=== PATIENT | male | born 1955 | race African-American/Black ===

== ENCOUNTER 2017-07-03 10:50 | Inpatient (IN) | payer OTHER ==
[~2017-07-03] VITALS: Ht 170.2 cm; Wt 80.3 kg
[~2017-07-03 10:50] MED LIST: ASPI-1093 PO; GLIP10TA3 PO; LISI5TAB18 PO; ORE25 PO
[2017-07-03 10:54] VITALS: BP 130/78
--- NOTE | 2017-07-03 11:05 | NUR ---
PT PRESENTS TO ER FOR EVALUATION OF RIGHT LEG PAIN X2 DAYS. HX DM, HTN, S/P SIVAKUMAR FOOT AMPUTATIONS IN 2001 AND 2009. DENIES N/V/D; SKIN IS PINK/WARM/DRY; AAOX4 WITH EVEN AND STEADY GAIT; LUNGS CLEAR BL; HR EVEN AND REGULAR; PT DENIES ANY FEVER, CP, SOB, OR COUGH AT THIS TIME; PATIENT STATES PAIN OF 8/10 AT THIS TIME; VSS; PATIENT POSITIONED FOR COMFORT; HOB ELEVATED; BEDRAILS UP X2; BED DOWN. ER MD MADE AWARE OF PT STATUS.
[2017-07-03] MEDS ORDERED: VANCOMYCIN PER PHARMACY MC PRN ×2 (11:20→13:50)
[2017-07-03] MEDS ORDERED: VANCOMYCIN 1GM/DEXT 5% PREMIX 200 ML IV ONE (11:20)
[2017-07-03] MEDS ORDERED: cefTRIAXone 2,000 MG in DEXTROSE 5% 100 ML IV ONE (11:20)
[2017-07-03] MEDS ORDERED: cefTRIAXone 2,000 MG VIAL ONE (11:38)
[2017-07-03 12:06] LABS: MEAN CORPUSCULAR HEMOGLOBIN 29 pg (27-31); MEAN CORPUSCULAR HGB CONC 32 g/dL (33-37); MEAN CORPUSCULAR VOLUME 88 fL (80-94); PLATELET COUNT (AUTO) 182 K/uL (140-450); RED CELL DISTRIBUTION WIDTH 11.9 % (11.6-13.7); WHITE BLOOD COUNT (AUTO) 14.9 K/uL (4.8-10.8)
[2017-07-03 12:16] LABS: LYMPHOCYTES % (MANUAL) 18 % (20-46); MONOCYTES % (MANUAL) 10 % (5-12)
[2017-07-03 12:17] LABS: PROTHROMBIN TIME 11.6 secs (10.8-13.4)
[2017-07-03 12:19] LABS: ALBUMIN 2.6 g/dL (3.4-5.0); ANION GAP 11.3 (8-16); CARBON DIOXIDE 31.3 mmol/L (21-32); CREATININE 1.8 mg/dL (0.7-1.3); POTASSIUM 3.6 mmol/L (3.5-5.1); TOTAL BILIRUBIN 1.6 mg/dL (0.0-1.0)
--- NOTE | 2017-07-03 14:01 | NUR ---
LATE ENTRY 1401 END TIME FOR NS 0.9%
--- NOTE | 2017-07-03 14:35 | NUR ---
Patient will be admitted to care of DR AVALOS. Admited to M/S. Will go to room 118. Belongings list completed. Report to WILL PATINO.
[2017-07-03 14:45] VITALS: BP 161/79
--- NOTE | 2017-07-03 14:45 | NUR ---
PATIENT ARRIVED ON MST UNIT VIA GURNEY/BED FROM ER. PATIENT ABLE TO TRANSFER SELF FROM BED TO WHEELCHAIR AND THEN TO BACK TO BED AGAIN. ABLE TO WHEEL SELF IN OWN WHEELCHAIR FROM HOME. IN STABLE CONDITION. NO DISTRESS NOTED. DENIES ANY PAIN AT THIS TIME. RESPIRATIONS EVEN, UNLABORED, ON ROOM AIR. AAOX4, CALM, COOPERATIVE, SKIN COLOR APPROPRIATE TO ETHNICITY, WARM TO TOUCH. HAS B/L FOOT AMPUTATION. RIGHT LE STUB DIABETIC ULCER PRESENT. DRESSING IS DRY AND INTACT. SKIN DRYNESS NOTED ON B/L LE. NO OTHER WOUNDS/LESIONS NOTED THROUGHOUT BODY. IV SITE ON LEFT FOREARM IS INTACT, PATENT, ON SALINE LOCK. LUNGS CTA ON ALL LOBES. ABDOMEN SOFT, NON-DISTENDED, NON-TENDER. REVIEWED PLAN OF CARE WITH PATIENT. PATIENT VERBALIZED UNDERSTANDING. SAFETY MEASURES IN PLACE, CALL LIGHT WITHIN REACH, FALL PREVENTIONS IN PLACE. WILL CONTINUE TO MONITOR.
--- NOTE | 2017-07-03 15:30 | NUR ---
PATIENT LYING IN BED WATCHING TV. NO DISTRESS NOTED. DENIES ANY PAIN. RESPIRATIONS EVEN, UNLABORED, ON ROOM AIR. CONDITION UNCHANGED. SAFETY MEASURES IN PLACE, CALL LIGHT WITHIN REACH, FALL PREVENTIONS IN PLACE. WILL CONTINUE TO MONITOR.
[2017-07-03 16:00] VITALS: BP 125/70
--- NOTE | 2017-07-03 17:57 | NUR ---
PAGED DR. AVALOS FOR ADMIT ORDERS FOR PATIENT. DR. BARBOSA COURTROOM DEPUTY OR CALENDAR CLERK FOR DR. AVALOS. DR. BARBOSA CALLED BACK AND VERBALIZED THAT SHE WILL TELL DR. AVALOS TO INPUT ADMIT ORDERS FOR PATIENT. WILL CONTINUE TO MONITOR.
[2017-07-03] MEDS ORDERED: ONDANSETRON 4 MG/2 ML VIAL IVP PRN (18:15)
[2017-07-03] MEDS ORDERED: MORPHINE SULFATE 2 MG/ML SYR IVP PRN (18:15)
[2017-07-03] MEDS ORDERED: ACETAMINOPHEN 325 MG TAB PO PRN (18:15)
[2017-07-03] MEDS ORDERED: MORPHINE SULFATE 4 MG/ML SYR IVP PRN (18:15)
--- NOTE | 2017-07-03 18:41 | NUR ---
PATIENT SITTING IN BED EATING DINNER. NO DISTRESS NOTED. CONDITION UNCHANGED. ADMIT ORDERS INPUTTED BY DR. AVALOS. IVF STARTED PER MD ORDERS. WILL CONTINUE TO MONITOR.
[2017-07-03] MEDS: NACL 0.9% 1,000 ML IV SCH (19:26)
--- NOTE | 2017-07-03 19:26 | NUR ---
GAVE REPORT TO OCCUPATIONAL PHYSICIAN NURSE FOR CONTINUITY OF CARE. PATIENT IN STABLE CONDITION.
--- NOTE | 2017-07-03 19:27 | NUR ---
PATIENT REPORT RECEIVED FROM MORNING NURSE AT BEDSIDE. PATIENT IS AWAKE, ALERT, AND ORIENTED. NO SIGNS AND SYMPTOMS OF DISTRESS NOTED. PATIENT IS ON ROOM AIR. NO COMPLAINTS OF PAIN AT THIS TIME. PLAN OF CARE DISCUSSED WITH PATIENT. PATIENT VERBALIZED UNDERSTANDING. BED IN LOWEST POSITION, SIDE RAILS UP AND CALL LIGHT WITHIN REACH. WILL CONTINUE TO MONITOR.
[2017-07-03] MEDS ORDERED: DEXTROSE 50% 50 ML SYR IVP PRN (19:40)
--- NOTE | 2017-07-03 20:00 | NUR ---
PATIENT SEEN BY DR. AVALOS
[2017-07-03] MEDS: BLOOD GLUCOSE MONITORING 1 DEV DEV FS SCH (20:57)
[2017-07-03] MEDS ORDERED: PIPERACILLIN/TAZOBACTAM 3.375 GM in DEXTROSE 5% 50 ML IV SCH (21:00)
[2017-07-03] MEDS: PIPER/TAZO 3.375GM/D5W PREMIX 50 ML IV SCH (21:09)
[2017-07-03] MEDS: INSULIN LISPRO SLIDING SCALE 100 UNITS/ML VIAL SUBQ PRN (21:09)
--- NOTE | 2017-07-03 23:00 | NUR ---
CHECKED ON PATIENT. PATIENT IS ASLEEP. NO SIGNS AND SYMPTOM OF DISTRESS NOTED. BREATHING EVEN AND UNLABORED. BED IN LOWEST POSITION, SIDE RAILS UP AND CALL LIGHT WITHIN REACH. WILL CONTINUE TO MONITOR.
[2017-07-04] VITALS: BP 109/61
--- NOTE | 2017-07-04 01:00 | NUR ---
WOUND ASSESSMENT DONE. WOUND CLEANED WITH NS. DRESSING CHANGED. MODERATE AMOUNT OF DRAINAGE NOTED. PATIENT TOLERATED WELL.
--- NOTE | 2017-07-04 03:00 | NUR ---
CHECKED ON PATIENT. PATIENT IS ASLEEP. NO SIGNS AND SYMPTOMS OF DISTRESS NOTED. BREATHING EVEN AND UNLABORED. BED IN LOWEST POSITION, SIDE RAILS UP AND CALL LIGHT WITHIN REACH. WILL CONTINUE TO MONITOR.
[2017-07-04] MEDS: NACL 0.9% 1,000 ML IV SCH ×2 (04:12→13:42)
[2017-07-04] MEDS: PIPER/TAZO 3.375GM/D5W PREMIX 50 ML IV SCH ×3 (04:12→20:34)
[2017-07-04] MEDS: INSULIN LISPRO SLIDING SCALE 100 UNITS/ML VIAL SUBQ PRN ×3 (06:07→20:32)
[2017-07-04] MEDS: BLOOD GLUCOSE MONITORING 1 DEV DEV FS SCH ×4 (06:32→20:13)
--- NOTE | 2017-07-04 07:21 | NUR ---
PATIENT REPORT GIVEN TO MORNING NURSE AT BEDSIDE. PATIENT IS IN STABLE CONDITION.
--- NOTE | 2017-07-04 07:22 | NUR ---
RECEIVED REPORT FROM DROP BOARD WORKER NURSE. PATIENT LYING IN BED SLEEPING, AROUSABLE BY VOICE. NO DISTRESS NOTED. IN STABLE CONDITION. RESPIRATIONS EVEN, UNLABORED, ON ROOM AIR. DENIES ANY PAIN AT THIS TIME. AAOX4, CALM, COOPERATIVE, SKIN COLOR APPROPRIATE TO ETHNICITY, WARM TO TOUCH. HAS B/L FOOT AMPUTATION. RIGHT LE STUB DIABETIC ULCER PRESENT. DRESSING IS DRY AND INTACT. SKIN DRYNESS NOTED ON B/L LE. NO OTHER WOUNDS/LESIONS NOTED THROUGHOUT BODY. IV SITE ON LEFT FOREARM IS INTACT, PATENT, AND INFUSING IVF PER ORDERS. LUNGS CTA ON ALL LOBES. ABDOMEN SOFT, NON-DISTENDED, NON-TENDER. REVIEWED PLAN OF CARE WITH PATIENT. PATIENT VERBALIZED UNDERSTANDING. SAFETY MEASURES IN PLACE, CALL LIGHT WITHIN REACH, FALL PREVENTIONS IN PLACE. WILL CONTINUE TO MONITOR.
[2017-07-04 08:00] VITALS: BP 109/62
[2017-07-04] MEDS: LISINOPRIL 5 MG TAB PO SCH (08:53)
[2017-07-04] MEDS: amLODIPine 5 MG TAB PO SCH (08:53)
--- NOTE | 2017-07-04 08:58 | NUR ---
PATIENT HAS BEEN SCREENED AND CATEGORIZED HIGH NUTRITION RISK. PATIENT WILL BE SEEN WITHIN 1-2 DAYS OF ADMISSION. 07/04/17-07/05/[address]
[2017-07-04 09:04] LABS: BASOPHILS # (AUTO) 0.1 K/uL (0.00-0.22); BASOPHILS % (AUTO) 0.5 % (0.0-2.0); EOSINOPHILS # (AUTO) 0.1 K/uL (0-0.4); EOSINOPHILS % (AUTO) 0.6 % (0.0-4.0); HEMATOCRIT 35.6 % (36-52); HEMOGLOBIN 11.9 g/dL (12.0-18.0); LYMPHOCYTES # (AUTO) 1.4 K/uL (2.0-11.5); LYMPHOCYTES % (AUTO) 13.9 % (20.5-51.1); MEAN CORPUSCULAR HEMOGLOBIN 29 pg (27-31); MEAN CORPUSCULAR HGB CONC 34 g/dL (33-37); MEAN CORPUSCULAR VOLUME 87 fL (80-94); MONOCYTES % (AUTO) 19.6 % (1.7-9.3); NEUTROPHILS # (AUTO) 6.5 K/uL (1.8-7.7); NEUTROPHILS % (AUTO) 65.4 % (42.2-75.2); PLATELET COUNT (AUTO) 168 K/uL (140-450); RED BLOOD CELL COUNT(AUTO) 4.09 MIL/uL (4.20-6.10); RED CELL DISTRIBUTION WIDTH 11.8 % (11.6-13.7)
--- NOTE | 2017-07-04 09:15 | NUR ---
PATIENT SITTING IN BED WATCHING TV. NO DISTRESS NOTED. DENIES ANY PAIN. BLOOD PRESSURE MEDICATIONS WITHHELD DUE TO DECREASED BP. EMPTIED URINAL. SAFETY MEASURES IN PLACE, CALL LIGHT WITHIN REACH. WILL CONTINUE TO MONITOR.
[2017-07-04 09:21] LABS: ALBUMIN 1.9 g/dL (3.4-5.0); ANION GAP 9.8 (8-16); CARBON DIOXIDE 30.8 mmol/L (21-32); CREATININE 1.5 mg/dL (0.7-1.3); POTASSIUM 3.6 mmol/L (3.5-5.1); TOTAL BILIRUBIN 0.6 mg/dL (0.0-1.0)
[2017-07-04 09:35] LABS: WHITE BLOOD COUNT (AUTO) 10.1 K/uL (4.8-10.8)
--- NOTE | 2017-07-04 11:30 | NUR ---
PATIENT SITTING IN BED WATCHING TV. NO DISTRESS NOTED. CONDITION UNCHANGED. DENIES ANY PAIN. SAFETY MEASURES IN PLACE. WILL CONTINUE TO MONITOR.
--- NOTE | 2017-07-04 11:52 | NUR ---
CM NOTE INITIAL REVIEW FAXED TO [facility] [phone] JUSTYN [phone]
--- NOTE | 2017-07-04 12:23 | NUR ---
PATIENT SITTING IN BED WATCHING TV. NO DISTRESS NOTED. RESPIRATIONS EVEN, UNLABORED, ON ROOM AIR. CONDITION UNCHANGED. RLE STUB ULCER IS DRY AND INTACT. SCHEDULED MEDICATIONS DUE GIVEN. SAFETY MEASURES IN PLACE, CALL LIGHT WITHIN REACH, FALL PREVENTIONS IN PLACE. WILL CONTINUE TO MONITOR.
[2017-07-04] MEDS: VANCOMYCIN 1GM/DEXT 5% PREMIX 200 ML IV SCH (13:32)
--- NOTE | 2017-07-04 13:35 | NUR ---
PATIENT SITTING IN BED WATCHING TV. NO DISTRESS NOTED. DENIES ANY PAIN. CONDITION UNCHANGED. RLE DIABETIC ULCER DRESSING DRY AND INTACT. SCHEDULED ANTIBIOTIC MEDICATION DUE GIVEN. SAFETY MEASURES IN PLACE, CALL LIGHT WITHIN REACH. WILL CONTINUE TO MONITOR.
--- NOTE | 2017-07-04 14:30 | NUR ---
PATIENT SITTING IN BED WATCHING TV. NO DISTRESS NOTED. DENIES ANY PAIN. RLE STUB DRESSING IS DRY AND INTACT. CONDITION UNCHANGED. SAFETY MEASURES IN PLACE, CALL LIGHT WITHIN REACH. WILL CONTINUE TO MONITOR.
--- NOTE | 2017-07-04 15:53 | NUR ---
PATIENT SITTING IN BED WATCHING TV. NO DISTRESS NOTED. CONDITION UNCHANGED. AWAITING FOR WOUND NURSE CONSULT AND DR. DELANEY CONSULT. SAFETY MEASURES IN PLACE, CALL LIGHT WITHIN REACH. WILL CONTINUE TO MONITOR.
[2017-07-04 16:00] VITALS: BP 120/69
--- NOTE | 2017-07-04 17:15 | NUR ---
PATIENT SITTING IN BED WATCHING TV. NO DISTRESS NOTED. CONDITION UNCHANGED. SAFETY MEASURES IN PLACE, CALL LIGHT WITHIN REACH. WILL CONTINUE TO MONITOR.
--- NOTE | 2017-07-04 18:19 | NUR ---
PATIENT SITTING IN BED WITH DINNER TRAY IN FRONT. NO DISTRESS NOTED. RESPIRATIONS EVEN, UNLABORED, ON ROOM AIR. CONDITION UNCHANGED. SAFETY MEASURES IN PLACE, CALL LIGHT WITHIN REACH. WILL CONTINUE TO MONITOR.
--- NOTE | 2017-07-04 19:23 | NUR ---
GAVE REPORT TO AUTOMOTIVE PARTS COUNTER ASSOCIATE NURSE FOR CONTINUITY OF CARE. PATIENT IN STABLE CONDITION.
--- NOTE | 2017-07-04 19:24 | NUR ---
PATIENT REPORT RECEIVED FROM MORNING NURSE AT BEDSIDE. PATIENT IS AWAKE, ALERT AND ORIENTED. NO SIGNS AND SYMPTOMS OF DISTRESS NOTED. NO COMPLAINTS OF PAIN AT THIS TIME. IV SITE NOTED ON LEFT FOREARM, IVF INFUSING WELL. BED IN LOWEST POSITION, SIDE RAILS UP AND CALL LIGHT WITHIN REACH. WILL CONTINUE TO MONITOR.
--- NOTE | 2017-07-04 22:30 | NUR ---
PATIENT SEEN BY DR. DELANEY. ORDERS RECEIVED.
--- NOTE | 2017-07-04 23:00 | NUR ---
PER DR. DELANEY'S ORDERS. PATIENT'S RIGHT LOWER EXTREMITY STUMP WOUND CLEANED WITH NS, THEN WRAPPED WITH TOWEL SOAKED IN NS AND SECURED.
[2017-07-05] VITALS: BP 131/70
[2017-07-05] MEDS: NACL 0.9% 1,000 ML IV SCH ×3 (01:11→13:01)
[2017-07-05] MEDS: PIPER/TAZO 3.375GM/D5W PREMIX 50 ML IV SCH ×3 (04:12→21:16)
[2017-07-05] MEDS: INSULIN LISPRO SLIDING SCALE 100 UNITS/ML VIAL SUBQ PRN ×3 (06:07→21:14)
[2017-07-05] MEDS: BLOOD GLUCOSE MONITORING 1 DEV DEV FS SCH ×4 (06:36→21:16)
--- NOTE | 2017-07-05 07:17 | NUR ---
PATIENT REPORT GIVEN TO MORNING NURSE AT BEDSIDE. PATIENT IS IN STABLE CONDITION
--- NOTE | 2017-07-05 07:18 | NUR ---
RECEIVED REPORT FROM THE BELLY ROLLER AT BEDSIDE FOR CONTINUITY OF CARE. PT IS SLEEPING. WILL BE BACK TO REASSESS PT. UPDATED THE BOARD. NOTED IV ON L FA 22G NS AT 100ML INFUSING.
[2017-07-05 07:21] LABS: BASOPHILS # (AUTO) 0.1 K/uL (0.00-0.22); BASOPHILS % (AUTO) 0.8 % (0.0-2.0); EOSINOPHILS # (AUTO) 0.1 K/uL (0-0.4); EOSINOPHILS % (AUTO) 1.1 % (0.0-4.0); HEMATOCRIT 36.5 % (36-52); HEMOGLOBIN 12.1 g/dL (12.0-18.0); LYMPHOCYTES # (AUTO) 1.5 K/uL (2.0-11.5); LYMPHOCYTES % (AUTO) 15.4 % (20.5-51.1); MEAN CORPUSCULAR HEMOGLOBIN 29 pg (27-31); MEAN CORPUSCULAR HGB CONC 33 g/dL (33-37); MEAN CORPUSCULAR VOLUME 88 fL (80-94); MONOCYTES % (AUTO) 10.6 % (1.7-9.3); NEUTROPHILS # (AUTO) 6.9 K/uL (1.8-7.7); NEUTROPHILS % (AUTO) 72.1 % (42.2-75.2); PLATELET COUNT (AUTO) 189 K/uL (140-450); RED BLOOD CELL COUNT(AUTO) 4.16 MIL/uL (4.20-6.10); RED CELL DISTRIBUTION WIDTH 11.9 % (11.6-13.7); WHITE BLOOD COUNT (AUTO) 9.6 K/uL (4.8-10.8)
[2017-07-05 07:25] LABS: ALBUMIN 2.1 g/dL (3.4-5.0); ANION GAP 10.5 (8-16); CARBON DIOXIDE 29.7 mmol/L (21-32); CREATININE 1.3 mg/dL (0.7-1.3); POTASSIUM 4.2 mmol/L (3.5-5.1); TOTAL BILIRUBIN 0.6 mg/dL (0.0-1.0)
[2017-07-05 08:00] VITALS: BP 134/80
--- NOTE | 2017-07-05 08:10 | NUR ---
PT AWAKE. INTRODUCED MYSELF. V/S WITHIN NORMAL RANGE. DENIES PAIN. NO SIGNS OF DISTRESS. WONDERED WHAT TIME DR. DELANEY WILL BE HERE FOR PROCEDURE. PER HIGHWAY ENGINEERING TEACHER NURSE BETWEEN 9-10AM. NOTIFIED PT. PT HAS BEEN NPO SINCE MIDNIGHT. NOTED THE WHEELCHAIR NEXT TO THE BED. PT IS ABLE TO AMBULATE FROM BED TO WHEELCHAIR. SKIN IS DRY AND WARM TO TOUCH. NOTED THE 2 STUMPS AT BLE. R STUMP IS WRAPPED IN A WET TOWEL, WRAPPED IN A BAG. DR. DELANEY IS TO BE HERE AND DO DEBRIDEMENT TODAY. ALL EQUIPMENT REQUESTED IS AT BEDSIDE EXCEPT FRO LIDOCAINE. WILL NEED TO HAVE DR. DELANEY ORDER IT STAT. WILL CONTINUE TO MONITOR PT.
[2017-07-05] MEDS: LISINOPRIL 5 MG TAB PO SCH (09:00)
[2017-07-05] MEDS: amLODIPine 5 MG TAB PO SCH (09:00)
--- NOTE | 2017-07-05 09:40 | NUR ---
PATIENT REFUSED BLOOD PRESSURE MEDICATIONS. WILL CONTINUE TO MONITOR PATIENT.
--- NOTE | 2017-07-05 11:44 | NUR ---
07/05/17 RD INITIAL ASSESSMENT COMPLETED PLEASE REFER TO NUTRITION ASSESSMENT UNDER CARE ACTIVITY FOR ESTIMATED NUTRITIONAL NEEDS. RD RECOMMENDATIONS: 1- RECOMMEND CONTINUE NPO DIET 2- WHEN MEDICALLY CLEARED FOR PO DIET, RECOMMEND 60G CCHO DIET, 2G NA. 3- F/U 3-5 DAYS; MODERATE RISK. YOANDY DÍAZ MBA, RD
--- NOTE | 2017-07-05 12:00 | NUR ---
CALLED DR. DELANEY REGARDING PT'S DIET. PT UPSET THAT HIS PROCEDURE HASN'T BEEN DONE THIS MORNING. PT CLAIMS HE IS HUNGRY. DR DELANEY SAID GO AHEAD AND ORDER A TRAY FOR HIM. HE WILL BE BY LATER TO DO THE PROCEDURE. ALL EQUIP AT BEDSIDE. WILL CONTINUE TO MONITOR PT.
--- NOTE | 2017-07-05 12:45 | NUR ---
RECEIVED A LATE LUNCH TRAY. PT EATING. NOTIFIED PT OF DR. DELANEY'S PLANS TO COME LATER TO DO THE PROCEDURE.
[2017-07-05] MEDS: VANCOMYCIN 1GM/DEXT 5% PREMIX 200 ML IV SCH (12:54)
--- NOTE | 2017-07-05 14:51 | NUR ---
PT WATCHING TV. NO SIGNS OF DISTRESS. STILL NO SIGNS OF DR. DELANEY. WILL AWAIT HIS ARRIVAL. WILL CONTINUE TO MONITOR PT.
--- NOTE | 2017-07-05 15:35 | NUR ---
DR. DELANEY CAME AND DEBRIDEMENT OF RIGHT FOOT WOUND DONE AT BEDSIDE. PT. TOLERATED WELL.
[2017-07-05] MEDS ORDERED: LIDOCAINE 1% 500 MG/50 ML VIAL INJ SCH (15:40)
--- NOTE | 2017-07-05 15:40 | NUR ---
ENDORSED PT TO WILL BANSAL. PT IS BEING SEEN BY DR. DELANEY, HAVING THE DEBRIDEMENT DONE. PT TOLERATING WELL. PT IN STABLE CONDITION.
[2017-07-05 16:00] VITALS: BP 152/91
--- NOTE | 2017-07-05 19:15 | NUR ---
BEDSIDE REPORT GIVEN TO [place] B[facility]DS -WILL. IVF INFUSING WELL. IN STABLE CONDITION.
--- NOTE | 2017-07-05 19:18 | NUR ---
RECEIVED REPORT FROM DAY SHIFT NURSE. PT LYING COMFORTABLY IN BED. AAOX4. IV TO LEFT FA #22G WITH NS AT 100ML/HR. DRESSING TO RIGHT FOOT, CLEAN, DRY AND INTACT. NO C/O PAIN OR DISCOMFORT NOTED. DISCUSSED PLAN OF CARE, PT VERBALIZED UNDERSTANDING. SAFETY PRECAUTION IN PLACE. CALL LIGHT WITHIN REACH. WILL CONTINUE TO MONITOR.
[2017-07-06] VITALS: BP 147/90
--- NOTE | 2017-07-06 00:05 | NUR ---
PT C/O CHILLS. V/S TAKEN. V/S WITHIN NORMAL LIMITS. OFFERED WARM BLANKET AND WARM WATER. PT STATED HE FEELS BETTER. WILL CONTINUE TO MONITOR. CALL LIGHT WITHIN REACCH.
--- NOTE | 2017-07-06 00:20 | NUR ---
PT STATED HE FEELS A LOT BETTER. NO CHILLS NOTED. NO DISTRESS NOTED. ALL NEEDS MET AT THIS TIME. CALL LIGHT WITHIN REACH.
--- NOTE | 2017-07-06 03:30 | NUR ---
PT SLEEPING. NO S/S OF PAIN OR DISCOMFORT. CALL LIGHT WITHIN REACH.
[2017-07-06] MEDS: PIPER/TAZO 3.375GM/D5W PREMIX 50 ML IV SCH ×3 (04:28→21:01)
[2017-07-06] MEDS: NACL 0.9% 1,000 ML IV SCH ×3 (05:15→19:14)
[2017-07-06] MEDS: INSULIN LISPRO SLIDING SCALE 100 UNITS/ML VIAL SUBQ PRN ×4 (06:08→20:59)
[2017-07-06] MEDS: BLOOD GLUCOSE MONITORING 1 DEV DEV FS SCH ×5 (06:10→21:04)
--- NOTE | 2017-07-06 07:18 | NUR ---
ENDORSED PT TO DAY SHIFT NURSE. PT IN STABLE CONDITION.
--- NOTE | 2017-07-06 07:19 | NUR ---
RECEIVED REPORT FROM PASSENGER SOLICITOR RN AT BEDSIDE FOR CONTINUITY OF CARE. PT LYING COMFORTABLY IN BED. AAOX4. IV TO LEFT FA #22G WITH NS AT 100ML/HR. DRESSING TO RIGHT FOOT, CLEAN, DRY AND INTACT. NO C/O PAIN OR DISCOMFORT NOTED. DISCUSSED PLAN OF CARE, PT VERBALIZED UNDERSTANDING. SAFETY PRECAUTION IN PLACE. CALL LIGHT WITHIN REACH. WILL CONTINUE TO MONITOR.
[2017-07-06 07:48] LABS: BASOPHILS # (AUTO) 0.1 K/uL (0.00-0.22); BASOPHILS % (AUTO) 0.9 % (0.0-2.0); EOSINOPHILS # (AUTO) 0.1 K/uL (0-0.4); EOSINOPHILS % (AUTO) 0.6 % (0.0-4.0); HEMOGLOBIN 11.8 g/dL (12.0-18.0); LYMPHOCYTES # (AUTO) 1.2 K/uL (2.0-11.5); LYMPHOCYTES % (AUTO) 11.8 % (20.5-51.1); MEAN CORPUSCULAR HEMOGLOBIN 29 pg (27-31); MEAN CORPUSCULAR HGB CONC 33 g/dL (33-37); MEAN CORPUSCULAR VOLUME 87 fL (80-94); MONOCYTES # (AUTO) 1.2 K/uL (0.8-1.0); MONOCYTES % (AUTO) 11.7 % (1.7-9.3); NEUTROPHILS # (AUTO) 7.3 K/uL (1.8-7.7); PLATELET COUNT (AUTO) 234 K/uL (140-450); RED BLOOD CELL COUNT(AUTO) 4.11 MIL/uL (4.20-6.10); WHITE BLOOD COUNT (AUTO) 9.9 K/uL (4.8-10.8)
[2017-07-06 08:00] VITALS: BP 132/77
[2017-07-06] MEDS: LISINOPRIL 5 MG TAB PO SCH (09:41)
[2017-07-06] MEDS: amLODIPine 5 MG TAB PO SCH (09:41)
--- NOTE | 2017-07-06 09:43 | NUR ---
ADMINISTERED MORNING MEDICATIONS. PATIENT TOLERATED THEM WELL. PATIENT SITTING UP IN BED AND PLAYING CARDS. NO COMPLAINTS. NO SIGNS OF DISTRESS. WILL CONTINUE TO MONITOR.
--- NOTE | 2017-07-06 12:08 | NUR ---
PT WATCHING TV. NO SIGNS OF DISTRESS. NO COMPLAINTS. PT IS BACK IN BED. WILL CONTINUE TO MONITOR PT.
--- NOTE | 2017-07-06 12:58 | NUR ---
PT'S VANCO TROUGH RESULTED 6.8. WILL GIVE VANCO. PER PHARMACIST, WILL START LOWER DOSAGE TOMORROW.
[2017-07-06] MEDS ORDERED: VANCOMYCIN 1GM/DEXT 5% PREMIX 200 ML IV SCH (13:00)
[2017-07-06 16:00] VITALS: BP 154/92
[2017-07-06] MEDS ORDERED: VANCOMYCIN 750 MG in DEXTROSE 5% 250 ML IV SCH (18:00)
--- NOTE | 2017-07-06 19:16 | NUR ---
ENDORSED TO CHARGE NURSE. PATIENT IS IN STABLE CONDITION.
--- NOTE | 2017-07-06 19:56 | NUR ---
RECEIVED REPORT FROM CHARGE NURSE. PT IN BED, WATCHING TV. IV TO LEFT WRIST #22G WITH NS AT 100ML/HR, INFUSING WELL. DRESSING TO RIGHT FOOT, CLEAN, DRY AND INTACT. NO C/O PAIN OR DISCOMFORT NOTED. DISCUSSED PLAN OF CARE, PT VERBALIZED UNDERSTANDING. SAFETY PRECAUTION IN PLACE. CALL LIGHT WITHIN REACH. WILL CONTINUE TO MONITOR.
--- NOTE | 2017-07-06 23:05 | NUR ---
PT WATCHING TV. NO C/O PAIN OR DISCOMFORT. CALL LIGHT WITHIN REACH.
[2017-07-07] VITALS: BP 152/88
--- NOTE | 2017-07-07 02:30 | NUR ---
PT SLEEPING BUT WAKES EASILY. NO C/O PAIN OR DISCOMFORT NOTED. CALL LIGHT WITHIN REACH.
[2017-07-07] MEDS: PIPER/TAZO 3.375GM/D5W PREMIX 50 ML IV SCH ×3 (04:29→20:24)
[2017-07-07] MEDS: VANCOMYCIN 750 MG in DEXTROSE 5% 250 ML IV SCH ×2 (05:19→17:27)
[2017-07-07] MEDS: BLOOD GLUCOSE MONITORING 1 DEV DEV FS SCH ×4 (05:35→20:33)
[2017-07-07] MEDS: INSULIN LISPRO SLIDING SCALE 100 UNITS/ML VIAL SUBQ PRN ×4 (06:05→20:30)
--- NOTE | 2017-07-07 06:20 | NUR ---
PT REFUSED MORNING LABS. 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 WILL ENDORSE TO DAY SHIFT NURSE.
--- NOTE | 2017-07-07 07:25 | NUR ---
ENDORSED PT TO DAY SHIFT NURSE. PT IN STABLE CONDITION.
[2017-07-07 08:00] VITALS: BP 133/95
[2017-07-07] MEDS: amLODIPine 5 MG TAB PO SCH (09:24)
[2017-07-07] MEDS: LISINOPRIL 5 MG TAB PO SCH (09:30)
--- NOTE | 2017-07-07 10:15 | NUR ---
WOUND CARE EVALUATION NOTE REASON FOR EVALUATION: S/P I&D RLE WOUNDS COMPLETE SKIN ASSESSMENT DONE ON THIS 62Y/O MALE PATIENT TO [facility], WITH INITIAL DIAGNOSIS OF RIGHT FOOT PAIN AND INFECTION. PAST MEDICAL HISTORY INCLUDE BILATERAL FOOT AMPUTATION, PVD, OSTEOMYELITIS ,DM AND HTN. ALL ABOVE INFORMATION WAS OBTAINED FROM THE ADMISSION H&P AND PT. LABS ARE WBC 9.9, H/H 11.8/36, GLUCOSE 223, ALBUMIN 2.1. PT/INR 11.6/1.1 AND PTT 27.9. CURRENT MEDS INCLUDE VANCOMYCIN, LISINOPRIL, AMLODIPINE AND INSULIN. SKIN WARM TO TOUCH WNL, NO EDEMA, NO HAIR GROWTH, BLE ARE DRY, INITIAL PLAN OF CARE DISCUSSED WITH PRIMARY RN AND PT. PT VERBALIZES UNDERSTAND. INTEGUMENTARY: -BILATERAL FOOT AMPUTATION -S/P I&D RIGHT LOWER EXTREMITY WITH MULTIPLE CELLULITIS OPEN WOUNDS AND LARGEST MEASUREMENT 6X5X0.1CM WOUND BED PALE PINK, SMALL AMOUNT OF SEROUS DRAINAGE, NO ODOR, PER-WOUND IRREGULAR SHAPE -BILATERAL LOWER EXTREMITIES XEROSIS RECOMMENDATIONS: -HOME HEALTH FOLLOW UP WOUND CARE UPON DISCHARGED -APPLY HYDRAGUARD TO BLE BID WC AND LEAVE IT OPEN TO AIR -CLEANSE RIGHT LOWER LEG MULTIPLE CELLULITIS OPEN WOUNDS WITH NS, PAT DRY, APPLY HYDRAGEL AND COVER WITH XEROFORM WITH 4X4 DRY DRESSING WRAP WITH KERLIX QD AND PRN IF SOILING. -TURN AND REPOSITION PATIENT Q 2H -ASSESS AND MONITOR SKIN CONDITION DURING POSITION CHANGE -OFFLOAD BILATERAL LOWER EXTREMITIES BY PLACING PILLOWS UNDER CALVES AT ALL TIMES, UNLESS OTHERWISE CONTRAINDICATED -PRESSURE REDISTRIBUTION SURFACE THERAPY -KEEP SKIN CLEAN AND DRY AT ALL TIMES RECOMMENDATIONS DISCUSSED WITH PRIMARY RN WILL FOLLOW UP Q 7-10 DAYS AND PRN, PLEASE CONTACT WOUND CARE NURSE FOR ANY CONCERNS, QUESTIONS AND CHANGES IN SKIN CONDITION.
--- NOTE | 2017-07-07 11:02 | NUR ---
Socoal Worker attempted to contact Patient's Sherine Coon at . No response and left her a voice mail to call back [facility].
--- NOTE | 2017-07-07 11:24 | NUR ---
CM NOTE CONCURRENT REVIEW FAXED TO [facility] [phone] MINE [phone] (ABDULLAHI ALEJANDRA [phone] ON VACATION)
[2017-07-07] MEDS: NACL 0.9% 1,000 ML IV SCH ×2 (14:05→22:13)
--- NOTE | 2017-07-07 14:26 | NUR ---
CM NOTE RECEIVED ORDER FOR HOME HEALTH. PER [facility] CM DECEMBER SEND TO [facility]. FAXED INQUIRY TO [facility]. PER [facility]# [phone], THEY CAN ACCEPT THE PATIENT AND WILL SEND A NURSE TO SEE PATIENT ONCE PATIENT IS DISCHARGED. [facility] CM DECEMBER AND CHARGE NURSE SANDIP CHARLES.
[2017-07-07] MEDS ORDERED: SKINTEGRITY HYDROGEL TP PRN (15:05)
--- NOTE | 2017-07-07 15:05 | NUR ---
DIABETIC ULCER CARE DONE BY SKIN CARE NURSE PICTURE TAKEN TO UP DATE ULCER CONDITION STILL NO ODOR,NO DISCHARGE PRESENT PT DENIES ANY PAIN AT THE AFFECTED SITE.
--- NOTE | 2017-07-07 15:15 | NUR ---
MEDICATION FOR GENERAL PAIN GIVEN ORDERED Q 4 HRS PATIENT TIMING HIMSELF.
[2017-07-07 16:34] VITALS: BP 135/88
--- NOTE | 2017-07-07 16:59 | NUR ---
[facility] AUTHOR[facility] #: [id number]
--- NOTE | 2017-07-07 19:17 | NUR ---
RECEIVED HANDOFF REPORT FROM REGISTRY NURSE SANA HOLDEN. PATIENT IS A&OX4. IV SITE PATENT AND INTACT. DRESSING HAS MINIMAL SOILING, WILL CHANGE ORDERED. PATIENT DENIES PAIN. NO SIGNS OR SYMPTOMS OF ACUTE DISTRESS NOTED. CALL LIGHT WITHIN REACH. WILL CONTINUE TO MONITOR.
--- NOTE | 2017-07-07 21:04 | NUR ---
PM ANTIBIOTICS GIVEN WITH EDUCATION. PATIENT VERBALIZED UNDERSTANDING. PATIENT DENIES DRESSING CHANGE ON RLE AT THIS TIME. WILL RE-EVALUATE AT A LATER TIME. PATIENT DENIES PAIN. NO SIGNS OR SYMPTOMS OF ACUTE DISTRESS NOTED. CALL LIGHT WITHIN REACH. WILL CONTINUE TO MONITOR.
[2017-07-08] VITALS: BP 136/77
[2017-07-08] MEDS: HYDRAGUARD CREAM TP SCH ×2 (02:10→12:27)
--- NOTE | 2017-07-08 02:12 | NUR ---
PATIENT STATES HAVING DIARRHEA. PATIENT DENIES PAIN. NO SIGNS OR SYMPTOMS OF ACUTE DISTRESS NOTED. CALL LIGHT WITHIN REACH. WILL CONTINUE TO MONITOR.
[2017-07-08] MEDS: PIPER/TAZO 3.375GM/D5W PREMIX 50 ML IV SCH (04:15)
[2017-07-08 05:07] LABS: BASOPHILS # (AUTO) 0.1 K/uL (0.00-0.22); BASOPHILS % (AUTO) 1.2 % (0.0-2.0); EOSINOPHILS # (AUTO) 0.1 K/uL (0-0.4); HEMATOCRIT 36.8 % (36-52); LYMPHOCYTES # (AUTO) 1.7 K/uL (2.0-11.5); LYMPHOCYTES % (AUTO) 15.1 % (20.5-51.1); MEAN CORPUSCULAR HEMOGLOBIN 29 pg (27-31); MEAN CORPUSCULAR HGB CONC 33 g/dL (33-37); MEAN CORPUSCULAR VOLUME 88 fL (80-94); MONOCYTES # (AUTO) 0.8 K/uL (0.8-1.0); MONOCYTES % (AUTO) 7.5 % (1.7-9.3); NEUTROPHILS # (AUTO) 8.5 K/uL (1.8-7.7); PLATELET COUNT (AUTO) 300 K/uL (140-450); RED BLOOD CELL COUNT(AUTO) 4.21 MIL/uL (4.20-6.10); WHITE BLOOD COUNT (AUTO) 11.2 K/uL (4.8-10.8)
[2017-07-08 05:25] LABS: ANION GAP 10.8 (8-16); CARBON DIOXIDE 28.1 mmol/L (21-32); CREATININE 1.3 mg/dL (0.7-1.3); POTASSIUM 3.9 mmol/L (3.5-5.1)
[2017-07-08] MEDS: VANCOMYCIN 750 MG in DEXTROSE 5% 250 ML IV SCH (05:26)
[2017-07-08 05:39] LABS: NEUTROPHILS % (AUTO) 75.2 % (42.2-75.2)
--- NOTE | 2017-07-08 07:10 | NUR ---
ENDORSED PLAN OF CARE TO AM RN. PATIENT IN STABLE CONDITION.
--- NOTE | 2017-07-08 07:11 | NUR ---
RECEIVED REPORT FROM CANCER GENETIC COUNSELOR RN. PATIENT IS AAOX4, RESPIRATORY EFFORT EVEN AND UNLABORED. HAS NO SIGNS AND SYMPTOMS OF ACUTE DISTRESS NOTED AT THIS TIME. HAS IV TO LEFT FOREARM 22G, VANCOMYCIN INFUSING AT THIS TIME AT 165ML/HR. NORMAL SALINE TO INFUSE AT 100ML/HR ONCE VANCO IS FINISHED. SITE IS CLEAN, DRY, PATENT AND INTACT. PATIENT HAS A DRESSING TO HIS RIGHT ANKLE. HAS BLE AMPUTATION, WHEELCHAIR IS NEXT TO HIS BED. BED IN LOWEST POSITION, SIDE RAILS UP X2, CALL LIGHT PLACED WITHIN REACH. WILL CONTINUE TO MONITOR.
[2017-07-08] MEDS: BLOOD GLUCOSE MONITORING 1 DEV DEV FS SCH ×4 (07:15→21:37)
[2017-07-08 08:00] VITALS: BP 126/82
[2017-07-08] MEDS: NACL 0.9% 1,000 ML IV SCH ×2 (09:04→18:13)
[2017-07-08] MEDS: LISINOPRIL 5 MG TAB PO SCH (09:09)
[2017-07-08] MEDS: amLODIPine 5 MG TAB PO SCH (09:10)
--- NOTE | 2017-07-08 10:02 | NUR ---
CM NOTE CONCURRENT REVIEW FAXED TO [facility] [phone] MINE [phone] (ABDULLAHI ALEJANDRA [phone] ON VACATION)
--- NOTE | 2017-07-08 11:20 | NUR ---
STUDENT SURGEONS AT THE BEDSIDE, REMOVED PATIENTS DRESSING TO ASSESS PATIENTS RIGHT ANKLE. PATIENT TOLERATED WELL.
--- NOTE | 2017-07-08 11:22 | NUR ---
Grapple Operator met with Patient to discuss MD SNF recommendation for a safe discharge. Patient Denied and stated, having those services before and not wanting to go to facility again. Patient Stated wanting to go home and having a recommendation for home health instead.
--- NOTE | 2017-07-08 11:40 | NUR ---
DR DELANEY AT THE BEDSIDE DISCUSSING PLAN WITH PATIENT. PATIENT VERBALIZED UNDERSTANDING AND STATED YES TO HAVING SURGERY. WILL CONTINUE TO MONITOR.
--- NOTE | 2017-07-08 11:50 | NUR ---
PATIENTS BLOOD SUGAR IS 322, GAVE 8 UNITS OF INSULIN. NO SIGNS AND SYMPTOMS OF ACUTE DISTRESS NOTED.
[2017-07-08] MEDS: INSULIN LISPRO SLIDING SCALE 100 UNITS/ML VIAL SUBQ PRN ×3 (11:59→21:43)
--- NOTE | 2017-07-08 12:00 | NUR ---
PLACED PATIENT ON NPO STATUS, DR DELANEY TO DO SURGERY THIS AFTERNOON.
--- NOTE | 2017-07-08 12:05 | NUR ---
SURGICAL CONSENT SIGNED BY PATIENT.
--- NOTE | 2017-07-08 12:20 | NUR ---
CM NOTE RECEIVED CALL FROM [facility] NURSE OFFICE VENTURA # [phone], FOR [facility]# [id number]
[2017-07-08] MEDS: SKINTEGRITY HYDROGEL TP SCH (12:28)
--- NOTE | 2017-07-08 12:32 | NUR ---
APPLIED DRESSING TO PATIENTS RIGHT ANKLE. PATIENT TOLERATED WELL, DENIES HAVING ANY PAIN. WILL CONTINUE TO MONITOR.
[2017-07-08 16:00] VITALS: BP 146/85
--- NOTE | 2017-07-08 16:43 | NUR ---
PATIENT TAKEN TO OR FOR RIGHT ANKLE GUILLOTINE AMPUTATION. CONSENT SIGNED. CHECKLIST DONE.
[2017-07-08] MEDS ORDERED: NACL 0.9% 1,000 ML IV SCH (16:46)
[2017-07-08] MEDS ORDERED: ONDANSETRON 4 MG/2 ML VIAL ONE (16:50)
[2017-07-08] MEDS ORDERED: DEXAMETHASONE 4 MG/ML VIAL ONE (16:50)
[2017-07-08] MEDS ORDERED: diphenhydrAMINE 50 MG/ML VIAL IVP PRN (16:50)
[2017-07-08] MEDS ORDERED: MEPERIDINE 25 MG/ML SYR IVP PRN (16:50)
[2017-07-08] MEDS ORDERED: SEVOFLURANE 250 ML BTL INH ONE (16:50)
[2017-07-08] MEDS ORDERED: PROPOFOL 200 MG/20 ML VIAL IV ONE ×2 (16:50)
[2017-07-08] MEDS ORDERED: HYDROmorphone 1 MG/ML AMP IVP PRN (16:50)
[2017-07-08] MEDS ORDERED: ONDANSETRON 4 MG/2 ML VIAL IVP PRN (16:50)
[2017-07-08] MEDS ORDERED: fentaNYL 0.05 MG/ML VIAL ONE (16:58)
[2017-07-08] MEDS ORDERED: MEPERIDINE 50 MG/ML SYR ONE (16:58)
[2017-07-08] MEDS ORDERED: MIDAZOLAM 2 MG/2 ML VIAL ONE (16:58)
[2017-07-08] MEDS ORDERED: BUPIVACAINE-MPF 0.25% 30 ML VIAL INJ ONE (17:01)
[2017-07-08 18:40] VITALS: BP 120/72
--- NOTE | 2017-07-08 18:40 | NUR ---
PATIENT BACK FROM SURGERY. RECEIVED REPORT FROM OR NURSE AT THE BEDSIDE. PATIENTS VITAL SIGNS ARE STABLE. BP 120/72, HR 86, TEMP 98.2F, 02 93%, RR 16. PATIENT STATES A 9/10 PAIN LEVEL. WILL GIVE MEDICATION. WILL CONTINUE TO MONITOR.
[2017-07-08] MEDS: VANCOMYCIN 1GM/DEXT 5% PREMIX 200 ML IV SCH (18:48)
--- NOTE | 2017-07-08 19:19 | NUR ---
Recieved patient on bed alert and oreinted x4 breathing even and unlabored vital signs stable. Will continue monitoring patient.
--- NOTE | 2017-07-08 19:27 | NUR ---
ENDORSED PATIENT TO TRADEMARK ATTORNEY RN FOR CONTINUITY OF CARE. PATIENT IN STABLE CONDITION.
[2017-07-08 19:45] VITALS: BP 108/68
[2017-07-08 23:48] VITALS: BP 112/68
[2017-07-09] MEDS: PIPER/TAZO 3.375GM/D5W PREMIX 50 ML IV SCH ×4 (01:48→17:14)
[2017-07-09] MEDS ORDERED: PIPERACILLIN/TAZOBACTAM 3.375 GM VIAL IV ONE ×2 (01:49→06:41)
[2017-07-09] MEDS: HYDRAGUARD CREAM TP SCH ×2 (01:54→12:19)
[2017-07-09] MEDS: NACL 0.9% 1,000 ML IV SCH ×2 (04:57→14:13)
[2017-07-09 06:20] LABS: CARBON DIOXIDE 27.8 mmol/L (21-32); CREATININE 1.7 mg/dL (0.7-1.3); POTASSIUM 4.8 mmol/L (3.5-5.1)
[2017-07-09] MEDS: VANCOMYCIN 1GM/DEXT 5% PREMIX 200 ML IV SCH (06:45)
[2017-07-09] MEDS: BLOOD GLUCOSE MONITORING 1 DEV DEV FS SCH ×4 (07:11→20:45)
[2017-07-09] MEDS: INSULIN LISPRO SLIDING SCALE 100 UNITS/ML VIAL SUBQ PRN ×4 (07:16→20:51)
--- NOTE | 2017-07-09 07:20 | NUR ---
RECEIVED REPORT FROM C S S REPRESENTATIVE NURSE. PATIENT SITTING IN BED WITH BREAKFAST TRAY IN FRONT. NO DISTRESS NOTED. IN STABLE CONDITION. RESPIRATIONS EVEN, UNLABORED, ON ROOM AIR. DENIES ANY PAIN AT THIS TIME. AAOX4, CALM, COOPERATIVE, SKIN COLOR APPROPRIATE TO ETHNICITY, WARM TO TOUCH. HAS B/L FOOT AMPUTATION. RIGHT LE S/P RIGHT ANKLE LEVEL GUILLOTINE APUTATION DONE YESTERDAY. RLE DRESSING IS DRY AND INTACT, AND NOT TO BE CHANGED UNTIL DR. DELANEY DOES THE FIRST DRESSING CHANGE. SKIN DRYNESS NOTED ON B/L LE. NO OTHER WOUNDS/LESIONS NOTED THROUGHOUT BODY. IV SITE ON LEFT FOREARM IS INTACT, PATENT, AND INFUSING IVF PER ORDERS. LUNGS CTA ON ALL LOBES. ABDOMEN SOFT, NON-DISTENDED, NON-TENDER. REVIEWED PLAN OF CARE WITH PATIENT. PATIENT VERBALIZED UNDERSTANDING. SAFETY MEASURES IN PLACE, CALL LIGHT WITHIN REACH, FALL PREVENTIONS IN PLACE. WILL CONTINUE TO MONITOR.
[2017-07-09 08:00] VITALS: BP 125/84
[2017-07-09] MEDS: amLODIPine 5 MG TAB PO SCH (09:00)
[2017-07-09] MEDS: LISINOPRIL 5 MG TAB PO SCH ×2 (09:00→09:44)
--- NOTE | 2017-07-09 09:17 | NUR ---
CM NOTE SPOKE WITH PATIENT BEDSIDE REGARDING DOCTORS ORDER (SNF, IV ANTIBIOTICS, TRACEY EVAL). PER PATIENT, HE DOES NOT WANT SNF OR TRACEY BUT WANTS TO GO HOME WHEN DISCHARGED AND PREFERS HOME HEALTH. PER PATIENT, HIS IS TEACHABLE AND WILLING TO BE TAUGHT. PER CHARGE NURSE CRISTINA, NO SPECIFIC ORDERS YET REGARDING THE IV ANTIBIOTICS PATIENT WILL BE NEEDING AFTER DISCHARGE, WAITING FOR CULTURE RESULTS.
--- NOTE | 2017-07-09 09:46 | NUR ---
PATIENT SITTING IN BED WATCHING TV. NO DISTRESS NOTED. CONDITION UNCHANGED. SCHEDULED MEDICATIONS DUE GIVEN. EMPTIED URINAL. SAFETY MEASURES IN PLACE, CALL LIGHT WITHIN REACH. WILL CONTINUE TO MONITOR.
--- NOTE | 2017-07-09 10:18 | NUR ---
ABDULLAHI NOTE CONCURRENT REVIEW FAXED TO [facility] [phone] DECEMBER [phone] ABDULLAHI ALEJANDRA [phone]. PER [facility] BILLET EXAMINER VENTURA PH# [phone], USE [facility] FOR ANY IV ANTIBIOTIC DISCHARGE NEED. SPOKE WITH HIRAL OF [facility] PH# [phone] AND HE SAID THEY CAN PROVIDE IV ANTIBIOTIC FOR [facility] PATIENT.
--- NOTE | 2017-07-09 10:30 | NUR ---
DR. AVALOS AT BEDSIDE REVIEWING PLAN OF CARE WITH PATIENT. POSSIBLE PICC LINE PLACEMENT FOR IV ANTIBIOTICS WHEN DISCHARGED WITH HOME HEALTH. DR. AVALOS EXPLAINED PROCEDURE TO PATIENT. PATIENT VERBALIZED COMPLETE UNDERSTANDING AND SIGNED CONSENT, PLACED IN CHART. WILL CONTINUE TO MONITOR.
[2017-07-09] MEDS: SKINTEGRITY HYDROGEL TP SCH (12:15)
--- NOTE | 2017-07-09 12:22 | NUR ---
PATIENT SITTING IN BED WITH LUNCH TRAY IN FRONT. NO DISTRESS NOTED. DENIES ANY PAIN. CONDITION UNCHANGED. SCHEDULED MEDICATIONS DUE GIVEN. IV SITE INTACT, PATENT, AND INFUSING. SAFETY MEASURES IN PLACE, CALL LIGHT WITHIN REACH. WILL CONTINUE TO MONITOR.
--- NOTE | 2017-07-09 13:30 | NUR ---
PATIENT LYING IN BED WATCHING TV. NO DISTRESS NOTED. DENIES ANY PAIN. RLE DRESSING DRY AND INTACT. SCHEDULED MEDICATIONS DUE GIVEN. WILL CONTINUE TO MONITOR.
--- NOTE | 2017-07-09 15:45 | NUR ---
PATIENT SITTING IN OWN WHEELCHAIR AT BEDSIDE WATCHING TV. NO DISTRESS NOTED. DENIES ANY PAIN. CONDITION UNCHANGED. SAFETY MEASURES IN PLACE, CALL LIGHT WITHIN REACH. WILL CONTINUE TO MONITOR.
[2017-07-09 16:00] VITALS: BP 148/85
--- NOTE | 2017-07-09 17:10 | NUR ---
PATIENT LYING IN BED TALKING ON THE PHONE WITH FAMILY MEMBER. NO DISTRESS NOTED. DENIES ANY PAIN. CONDITION UNCHANGED. SCHEDULED MEDICATIONS DUE GIVEN. WILL CONTINUE TO MONITOR.
--- NOTE | 2017-07-09 17:45 | NUR ---
PATIENT LYING IN BED WITH DINNER TRAY IN FRONT. NO DISTRESS NOTED. DENIES ANY PAIN. CONDITION UNCHANGED. WILL CONTINUE TO MONITOR.
--- NOTE | 2017-07-09 19:25 | NUR ---
GAVE REPORT TO SINGING TELEGRAM PERFORMER NURSE FOR CONTINUITY OF CARE. PATIENT IN STABLE CONDITION.
--- NOTE | 2017-07-09 19:26 | NUR ---
RECD. RESTING IN BED, AWAKE, A/OX4. RESPIRATION EVEN AND UNLABORED. IV OF NS AT 100 ML/HR INFUSING, LEFT FOREARM G22. BILATERAL FOOT AMPUTATED, ABLE TO TRANSFER SELF FROM BED TO WHEELCHAIR. RIGHT LE, S/P RIGHT ANKLE LEVEL GUILLOTINE AMPUTATION COVERED WITH DRESSING DRY AND INTACT.PLAN OF CARE DISCUSSED. VERBALIZED UNDERSTANDING. STATED THAT HE DOES NOT WANT TO GO TO SNF AFTER DISCHARGE BUT WANT TO GO HOME WITH HOME HEALTH. SAFETY MEASURES ENFORCED. CALL LIGHT IN REACH. DENIES PAIN 0/10.
--- NOTE | 2017-07-09 19:27 | NUR ---
Patient's Plan of Care was discussed and reviewed with SHELTERED WORKSHOP EXECUTIVE DIRECTOR: ORQUIDEA HAYNES
[2017-07-09] MEDS ORDERED: VANCOMYCIN 1,250 MG in DEXTROSE 5% 250 ML IV SCH (21:00)
--- NOTE | 2017-07-09 21:00 | NUR ---
DR. MAJANO CAME AND SPOKE WITH PATIENT, WILL FOLLOW UP WITH ANY NEW ORDERS.
[2017-07-10] VITALS: BP 114/85
--- NOTE | 2017-07-10 | NUR ---
SLEEPING COMFORTABLY IN BED.
[2017-07-10] MEDS: NACL 0.9% 1,000 ML IV SCH ×3 (00:13→10:13)
[2017-07-10] MEDS: HYDRAGUARD CREAM TP SCH ×2 (01:00→13:20)
--- NOTE | 2017-07-10 06:30 | NUR ---
WOKE UP EARLY, STILL TALKING ABOUT HIS DESIRE TO GO HOME, DOES NOT WANT TO SPEND SAE IN THE HOSPITAL.
[2017-07-10] MEDS: BLOOD GLUCOSE MONITORING 1 DEV DEV FS SCH ×4 (06:34→21:17)
[2017-07-10] MEDS: INSULIN LISPRO SLIDING SCALE 100 UNITS/ML VIAL SUBQ PRN ×4 (06:36→21:22)
[2017-07-10] MEDS: PIPER/TAZO 3.375GM/D5W PREMIX 50 ML IV SCH ×4 (06:48→16:59)
--- NOTE | 2017-07-10 07:20 | NUR ---
CONDITION REMAIN STABLE. ENDORSED TO WILL AMCEDO FOR CONTINUITY OF CARE.
--- NOTE | 2017-07-10 07:25 | NUR ---
RECEIVED REPORT FROM UNHAIRING MACHINE OPERATOR NURSE, PT IS RESTING IN BED A/OX4, UNABLE TO AMBULATE, IV IS ON THE LEFT FA, PATENT, INTACT, PT HAS BILATERAL FOOT AMPUTATION, PT IS S/P RIGHT ANKLE LEVEL GUILLOTINE AMPUTATION ON 07/08, DRESSING IS DRY AND INTACT, FIRST DRESSING CHANGE IS TO BE DONE BY DR. DELANEY ONLY, PT IS ON RA, NO S/S OF RESPIRATORY DISTRESS OR DISCOMFORT NOTED, DISCUSSED PLAN OF CARE WITH PT, PT VERBALIZED UNDERSTANDING, SAFETY/FALL PRECAUTIONS ARE IN PLACE, CALL LIGHT IS WITHIN REACH, WILL CONTINUE TO MONITOR.
[2017-07-10 07:52] LABS: ANION GAP 11.1 (8-16); CARBON DIOXIDE 26.9 mmol/L (21-32); CREATININE 1.8 mg/dL (0.7-1.3)
[2017-07-10 08:00] VITALS: BP 133/91
[2017-07-10] MEDS: LISINOPRIL 5 MG TAB PO SCH (08:28)
[2017-07-10] MEDS: amLODIPine 5 MG TAB PO SCH (08:29)
--- NOTE | 2017-07-10 08:29 | NUR ---
DUE MEDICATIONS GIVEN, PT TOLERATED WELL, CALL LIGHT WITHIN REACH.
--- NOTE | 2017-07-10 08:29 | NUR ---
CM NOTE CONCURRENT REVIEW FAXED TO [facility] [phone] M[place] [phone] JUSTYN [phone].
--- NOTE | 2017-07-10 10:07 | NUR ---
CM NOTE PER [facility] PH# [phone], THEIR WOUND CARE AND IV NURSE WILL NOT BE ABLE TO SEE PATIENT WHEN DISCHARGED UNTIL AFTER THE HOLIDAYS. CANCELLED REFERRAL TO [facility]. PER [facility] STITCH BONDING MACHINE TENDER HELPER VENTURA # [phone], SEND TO [facility]. FAXED INQUIRY TO [facility] [phone]. PER [facility] OF [facility]# [phone] THEY CAN ACCEPT PATIENT AND THEY HAVE WOUND CARE AND IV NURSE TO SEE PATIENT WHEN PATIENT IS DISCHARGED EVEN OVER THE WEEKEND AND HOLIDAYS. [facility] STITCH BONDING MACHINE TENDER HELPER VENTURA CHARLES, AUTH# [id number] FOR [facility]. CHARGE NURSE SANDIP CHARLES.
--- NOTE | 2017-07-10 10:10 | NUR ---
PT IS SITTING ON WHEELCHAIR AT BEDSIDE, WATCHING TV, ALL NEEDS ARE MET AT THIS TIME, CALL LIGHT IS WITHIN REACH.
[2017-07-10] MEDS: SKINTEGRITY HYDROGEL TP SCH (13:00)
--- NOTE | 2017-07-10 13:05 | NUR ---
HYDROGEL NOT ADMINISTERED ON RIGHT LOWER EXTREMITY SINCE DR. DELANEY WILL BE DOING THE FIRST DRESSING CHANGE.
--- NOTE | 2017-07-10 14:12 | NUR ---
PT RESTING IN BED WATCHING TV, CALL LIGHT IS WITHIN REACH.
--- NOTE | 2017-07-10 15:42 | NUR ---
07/10/17 RD FOLLOW UP COMPLETED PLEASE REFER TO NUTRITION PROGRESS NOTE UNDER CARE ACTIVITY FOR ESTIMATED NUTRITION NEEDS. 1. CONTINUE 60G CCHO DIET, 2G NA. 2. F/U 3-5 DAYS; MODERATE RISK. RAS GAO, RD
[2017-07-10 16:00] VITALS: BP 147/85
--- NOTE | 2017-07-10 16:30 | NUR ---
PT IS RESTING IN BED WATCHING TV, CALL LIGHT IS WITHIN REACH.
--- NOTE | 2017-07-10 18:27 | NUR ---
PT IS RESTING IN BED TALKING ON HIS CELL PHONE, CALL LIGHT IS WITHIN REACH.
--- NOTE | 2017-07-10 19:19 | NUR ---
ENDORSED PT TO METER ENGINEER NURSE FOR CONTINUITY OF CARE, PT STABLE AT THIS TIME.
[2017-07-10 20:00] VITALS: BP 152/90
--- NOTE | 2017-07-10 21:04 | NUR ---
RECEIVED REPORT FROM AM NURSE. PT IS AA0X4. IV ACCESS INTACT, PATENT AND ASYMPTOMATIC. NO SIGNS OF ACUTE DISTRESS NOTED. RESPIRATIONS EVEN AND UNLABORED. RIGHT FOOT AMPUTATION BELOW THE ANKLE. WHEELCHAIR AT THE BEDSIDE. PLAN OF CARE DISCUSSED, PT VERBALIZED UNDERSTANDING. BED IN LOW POSITION, BILATERAL HALF SIDE RAIL UP, CALL LIGHT WITHIN REACH, WILL CONTINUE TO MONITOR.
--- NOTE | 2017-07-10 21:11 | NUR ---
PT REFUSED NORMAL SALINE. STATES HE WILL DRINK FLUIDS BUT DOES NOT WANT ANY IV FLUIDS. RISKS AND BENEFITS EXPLAINED. PT STILL REFUSED IV FLUIDS, WILL NOT ADMINISTER.
[2017-07-11] VITALS: BP 146/83
[2017-07-11] MEDS: PIPER/TAZO 3.375GM/D5W PREMIX 50 ML IV SCH ×3 (00:17→12:00)
[2017-07-11] MEDS: HYDRAGUARD CREAM TP SCH ×2 (01:00→13:00)
--- NOTE | 2017-07-11 02:25 | NUR ---
PT IS SLEEPING, AROUSABLE TO VOICE. NO SIGNS OF ACUTE DISTRESS NOTED. RESPIRATIONS EVEN AND UNLABORED. BED IN LOW POSITION, BILATERAL HALF SIDE RAILS UP, CALL LIGHT WITHIN REACH, WILL CONTINUE TO MONITOR.
--- NOTE | 2017-07-11 04:05 | NUR ---
IV SITE ON LEFT AC INFILTRATED. IV CATHETER REMOVED. INFORMED PT NEW IV ACCESS NEEDS TO BE STARTED, BUT PT REFUSED. HE STATES HE DOES NOT WANT A NEW IV ACCESS TO BE STARTED. I ADVISED PT A NEW IV ACCESS NEEDS TO BE STARTED PER HOSPITAL PROTOCOL, AND IN ORDER TO GIVE ANTIBIOTICS DUE AT 0600 AN IV ACCESS NEEDS TO BE IN PLACE. PT IS STILL REFUSING A NEW IV TO BE PUT IN, AND SAYS HE DOES NOT WANT ANTIBIOTICS, HE WOULD RATHER WAIT TO GET A NEW LINE ONCE HE GETS TRANSFERRED TO [place], INFORMED PT HE STILL NEEDS A NEW LINE BECAUSE OF NOW WE DO NOT KNOW THE EXACT TIME OF TRANSFER TO [place]. RISKS AND BENEFITS EXPLAINED, PT REFUSED NEW IV SITE. WILL CONTINUE TO MONITOR.
[2017-07-11] MEDS: BLOOD GLUCOSE MONITORING 1 DEV DEV FS SCH ×3 (06:47→16:14)
[2017-07-11] MEDS: INSULIN LISPRO SLIDING SCALE 100 UNITS/ML VIAL SUBQ PRN ×4 (06:57→16:48)
--- NOTE | 2017-07-11 06:58 | NUR ---
PT REFUSED ZOSYN ANTIBIOTIC DUE AT 0600. PT REFUSED A NEW IV LINE BE STARTED AND IS REFUSING ANTIBIOTIC. HE STATES HE WANTS TO WAIT TO GO TO [place] IF HE CAN'T GET TRANSFERRED TODAY THEN HE WANTS TO GO HOME. RISKS AND BENEFITS EXPLAINED. PT VERBALIZED UNDERSTANDING.
--- NOTE | 2017-07-11 07:10 | NUR ---
ENDORSED PT TO AM NURSE FOR CONTINUITY OF CARE. PT IS IN STABLE CONDITION.
--- NOTE | 2017-07-11 07:25 | NUR ---
RECEIVED REPORT FROM TRANSFER KNITTER RN. PATIENT IS AAOX4, RESPIRATORY EFFORT EVEN AND UNLABORED. HAS NO SIGNS AND SYMPTOMS OF ACUTE DISTRESS NOTED AT THIS TIME. TRANSFER KNITTER REMOVED PATIENTS IV DUE TO INFILTRATION. WILL TRY TO INSERT NEW IV. PATIENT HAS A DRESSING TO HIS RIGHT ANKLE, FIRST DRESSING CHANGE SINCE GUILLOTINE AMPUTATION TO BE DONE BY DR DELANEY TODAY. HAS BLE AMPUTATION, WHEELCHAIR IS NEXT TO HIS BED. BED IN LOWEST POSITION, SIDE RAILS UP X2, CALL LIGHT PLACED WITHIN REACH. WILL CONTINUE TO MONITOR.
[2017-07-11 08:00] VITALS: BP 149/86
--- NOTE | 2017-07-11 08:04 | NUR ---
SPOKE WITH PT REGARDING PLAN OF TRANSFERRING TO [place] TODAY. PT STATED HE IS IN AGREEMENT WITH THE PLAN BUT PREFERS [facility]. PHARMACY DIRECTOR AMOS NOTIFIED.
--- NOTE | 2017-07-11 08:25 | NUR ---
CM NOTE RECEIVED ORDER FOR [facility] EV[facility]. PER CHARGE NURSE SANDIP, PATIENT IN AGREEMENT WITH [facility] AND [facility]. FAXED FACESHEET TO [facility] [phone] AND CLINICALS TO [facility] [employer]ANT SUPERVISOR ATTN: SIRIA [phone] # [phone]. CHARGE NURSE SANDIP AWARE.
--- NOTE | 2017-07-11 09:02 | NUR ---
CM NOTE CONCURRENT REVIEW FAXED TO [facility] [phone]. [facility] PH# [phone] AWARE OF ORDER FOR [facility] SCRUGGS.
[2017-07-11] MEDS: LISINOPRIL 5 MG TAB PO SCH (09:03)
[2017-07-11] MEDS: amLODIPine 5 MG TAB PO SCH (09:04)
--- NOTE | 2017-07-11 11:08 | NUR ---
CM NOTE [facility]PO[facility] [phone] TO [facility]EL HOME HEALTH. [facility] INFORMED PH# [phone].
--- NOTE | 2017-07-11 12:25 | NUR ---
CM NOTE PER [facility] PH# [phone], FOR [facility] AUTH# [id number], FOR [facility] [id number]. CHARGE NURSE SANDIP CHARLES.
[2017-07-11] MEDS: SKINTEGRITY HYDROGEL TP SCH (13:00)
[2017-07-11] MEDS ORDERED: VANCOMYCIN 1,500 MG in DEXTROSE 5% 500 ML IV SCH (15:00)
--- NOTE | 2017-07-11 15:00 | NUR ---
SIRIA MARBLE SETTER AT [facility] CALLED, PT IS GOING TO ROOM 306-A AFTER 7PM [facility]. TO CALL FOR REPORT [phone], ACCEPTING PHYSICIAN DR. LAURA. BLACK SOLIS ASSIGNED MADE AWARE.
--- NOTE | 2017-07-11 15:45 | NUR ---
SPOKE WITH VICENTA FROM [facility] LARA-WILL ASSIGNED MADE AWARE. MEDICARE FORM FAXED TO [facility] WITH CONFIRMATION ON PT'S CHART.
[2017-07-11 16:00] VITALS: BP 144/92
[2017-07-11] MEDS ORDERED: VANC1.5P3 IV (17:50)
[2017-07-11] MEDS ORDERED: ZOS3.375I IV (17:52)
--- NOTE | 2017-07-11 18:52 | NUR ---
RECEIVED A CALL FROM [facility] ASKING IF WE CAN POSTPONE PATIENTS SITECORE DEVELOPER FROM 8PM TO 9PM. DUE TO THAT A DELAY IN THE ROOM AVAILABILITY.
--- NOTE | 2017-07-11 18:54 | NUR ---
SPOKE WITH RICCO FROM [facility] TRANSP[facility], ETA IS CHANGED TO 9PM TONIGHT PER REQUEST BY [facility]. THELMA ASSIGNED NOTIFIED.
--- NOTE | 2017-07-11 19:28 | NUR ---
ENDORSED PATIENT TO BRINE PURIFIER RN FOR CONTINUITY OF CARE. PATIENT IN STABLE CONDITION.
--- NOTE | 2017-07-11 19:29 | NUR ---
RECEIVED REPORT FROM AM NURSE. PT IS SITTING UP IN WHEELCHAIR. AAOX4. ON ROOM AIR. NO SIGNS OF ACUTE DISTRESS NOTED, RESPIRATIONS EVEN AND UNLABORED. PLAN OF CARE DISCUSSED, PT VERBALIZED UNDERSTANDING. BED IN LOW POSITION, BILATERAL HALF SIDE RAILS UP, CALL LIGHT WITHIN REACH, WILL CONTINUE TO MONITOR.
[2017-07-11 20:00] VITALS: BP 128/79
== END 2017-07-11 21:15 | DRG 305 ==
LOC: MED 10:50 → MTU 13:59
PROVIDERS: ADMIT Hospitalist; ATTEND Hospitalist
PROC: 0JBQ0ZZ Excision of Right Foot Subcutaneous Tissue and Fascia, Open Approach (ICD-10-PCS; principal; 2017-07-05)
PROC: 0HDKXZZ Extraction of Right Lower Leg Skin, External Approach (ICD-10-PCS; 2017-07-05)
PROC: 0Y6H0Z3 Detachment at Right Lower Leg, Low, Open Approach (ICD-10-PCS; 2017-07-08)
DX: E11.69 Type 2 diabetes mellitus with other specified complication (principal); E43 Unspecified severe protein-calorie malnutrition; E11.52 Type 2 diabetes mellitus with diabetic peripheral angiopathy with gangrene; M86.171 Other acute osteomyelitis, right ankle and foot; E11.621 Type 2 diabetes mellitus with foot ulcer; T87.43 Infection of amputation stump, right lower extremity; T87.44 Infection of amputation stump, left lower extremity; E11.42 Type 2 diabetes mellitus with diabetic polyneuropathy; L02.415 Cutaneous abscess of right lower limb; E11.628 Type 2 diabetes mellitus with other skin complications; E11.65 Type 2 diabetes mellitus with hyperglycemia; S81.802A Unspecified open wound, left lower leg, initial encounter; S81.801A Unspecified open wound, right lower leg, initial encounter; L97.519 Non-pressure chronic ulcer of other part of right foot with unspecified severity; I10 Essential (primary) hypertension; Z89.432 Acquired absence of left foot; Z89.431 Acquired absence of right foot; Z88.8 Allergy status to other drugs, medicaments and biological substances; Z89.511 Acquired absence of right leg below knee; Z79.4 Long term (current) use of insulin; Z68.27 Body mass index [BMI] 27.0-27.9, adult; Z87.828 Personal history of other (healed) physical injury and trauma; Y83.5 Amputation of limb(s) as the cause of abnormal reaction of the patient, or of later complication, without mention of misadventure at the time of the procedure
CPT/HCPCS: 36415; 71010; 73630; 80048; 80053; 80202; 82948; 85025; 85610; 85651; 85730; 86140; 87040; 87070; 87075; 87081; 87205; 93005; 93925; 96365; 96367; 99285; A6248; J0696; J1100; J1815; J2001; J2175; J2250; J2270; J2405; J2543; J2704; J3010; J3370; J3490; J7030; J7060; Q0092

== ENCOUNTER 2017-12-04 14:46 | Emergency (ER) | payer OTHER ==
[~2017-12-04] VITALS: Ht 175.3 cm; Wt 77.1 kg
[~2017-12-04 14:46] MED LIST changes: +VANC1.5P3 IV; +ZOS3.375I IV
[2017-12-04 14:51] VITALS: BP 110/76
[2017-12-04] MEDS: traMADol 50 MG TAB PO ONE (15:20)
[2017-12-04 16:04] VITALS: BP 111/75
== END 2017-12-04 16:03 | disposition home or self-care (01) ==
LOC: MED 14:46
DX: E11.40 Type 2 diabetes mellitus with diabetic neuropathy, unspecified (principal); M85.862 Other specified disorders of bone density and structure, left lower leg; I10 Essential (primary) hypertension; Z79.82 Long term (current) use of aspirin; Z79.84 Long term (current) use of oral hypoglycemic drugs; Z79.899 Other long term (current) drug therapy; Z88.8 Allergy status to other drugs, medicaments and biological substances; Z89.432 Acquired absence of left foot
CPT/HCPCS: 73590; 99284; Q0092

== ENCOUNTER 2017-12-08 09:43 | Emergency (ER) | payer OTHER ==
[~2017-12-08] VITALS: Ht 175.3 cm; Wt 77.1 kg
[2017-12-08 09:48] VITALS: BP_SYST 137; BP_SYST 146; BP_DIAS 78; BP_DIAS 83
[2017-12-08] MEDS: CLINDAMYCIN 600 MG/4 ML VIAL IM ONE (11:21)
[2017-12-08] MEDS: KETOROLAC 60 MG/2 ML VIAL IM ONE (11:23)
[2017-12-08 13:35] VITALS: BP 126/71
== END 2017-12-08 13:35 | disposition home or self-care (01) ==
LOC: MED 09:43
DX: I73.9 Peripheral vascular disease, unspecified (principal); E11.9 Type 2 diabetes mellitus without complications; I10 Essential (primary) hypertension; Z79.899 Other long term (current) drug therapy; Z88.1 Allergy status to other antibiotic agents
CPT/HCPCS: 81002; 87070; 87186; 93971; 96372; 99285; J1885; J3490; Q0092

== ENCOUNTER 2018-01-10 10:04 | Emergency (ER) | payer OTHER ==
[~2018-01-10] VITALS: Ht 175.3 cm; Wt 77.1 kg
[2018-01-10 10:07] VITALS: BP 145/84
--- NOTE | 2018-01-10 10:11 | NUR ---
PT USES OWN POWERED WHEEL CHAIR TO BED 4
--- NOTE | 2018-01-10 10:14 | NUR ---
PATIENT PRESENTS TO ED WITH C/O SORE ON LT LOWER LEG TREATING WITH ANTIBIOTICS + NEOSPORIN WITH NO RELIEF SINCE NOVEMBER HX; DM, HTN, BL BKA RX; GLIPIZIDE, LISINOPRIL, ASA, HYDROCHLOROTHIAZIDE; DENIES N/V/D; SKIN IS PINK/WARM/DRY; AAOX4; LUNGS CLEAR BL; HR EVEN AND REGULAR; PT DENIES ANY FEVER, CP, SOB, OR COUGH AT THIS TIME; PATIENT STATES PAIN OF 0/10 AT THIS TIME; VSS; PATIENT POSITIONED FOR COMFORT; HOB ELEVATED; BEDRAILS UP X2; BED DOWN. ER MD MADE AWARE OF PT STATUS.
--- NOTE | 2018-01-10 10:21 | NUR ---
REPORT GIVEN TO WILL HILL
--- NOTE | 2018-01-10 10:27 | NUR ---
PATIENT PRESENTS TO ED FOR PRESSURE ULCER ON INNER LEFT CALF. DRESSING REMOVED. AWAITING MD EXAMINATION.
--- NOTE | 2018-01-10 10:31 | NUR ---
Dr. Baldwin evaluating patient at bedside.
[2018-01-10] MEDS ORDERED: NEOMYCIN/POLYMYXIN/BACITRACIN 0.9 GM/1 PKT TP ONE (10:41)
--- NOTE | 2018-01-10 10:44 | NUR ---
Patient discharged with v/s stable. Written and verbal after care instructions given and explained. Patient verbalized understanding. Ambulatory with steady gait. All questions addressed prior to discharge. Advised to follow up with PMD.
[2018-01-10 10:45] VITALS: BP 145/84
== END 2018-01-10 10:44 | disposition home or self-care (01) ==
LOC: MED 10:04
DX: L97.829 Non-pressure chronic ulcer of other part of left lower leg with unspecified severity (principal); I10 Essential (primary) hypertension; E11.9 Type 2 diabetes mellitus without complications; Z79.4 Long term (current) use of insulin; Z88.8 Allergy status to other drugs, medicaments and biological substances; Z89.511 Acquired absence of right leg below knee; Z89.432 Acquired absence of left foot
CPT/HCPCS: 99281

== ENCOUNTER 2018-12-19 09:02 | Emergency (ER) | payer OTHER ==
[~2018-12-19] VITALS: Ht 172.7 cm; Wt 77.1 kg
[2018-12-19 09:06] VITALS: BP 133/83
--- NOTE | 2018-12-19 09:22 | NUR ---
DR OROZCO AT BEDSIDE
--- NOTE | 2018-12-19 09:24 | NUR ---
C/O COUGH AND CONGESTION X1 WEEK. PT REPORTS PRODUCTIVE COUGH WITH CLEAR SPUTUM. -N/V/D, SOB OR FEVER. PT REPORTS 5/10 PAIN IN CHEST WITH COUGH. MEDHX:DM, BL BKA RX: ASPIRIN, ATROVASATIN, LISINOPRIL, HYDROCHLOROTHIAZIDE, INSULIN
--- NOTE | 2018-12-19 09:30 | NUR ---
x-ray at bedside.
[2018-12-19 09:49] VITALS: BP 133/83
--- NOTE | 2018-12-19 09:50 | NUR ---
Patient discharged with v/s stable. Written and verbal after care instructions given and explained. Patient alert, oriented and verbalized understanding of instructions. All questions addressed prior to discharge. ID band removed. Patient advised to follow up with PMD. Rx of Azithromycin and Promethazine given. Patient educated on indication of medication including possible reaction and side effects. Opportunity to ask questions provided and answered.
== END 2018-12-19 09:50 | disposition home or self-care (01) ==
LOC: MED 09:02
DX: J02.9 Acute pharyngitis, unspecified (principal); E11.9 Type 2 diabetes mellitus without complications; I10 Essential (primary) hypertension; Z79.84 Long term (current) use of oral hypoglycemic drugs; Z79.899 Other long term (current) drug therapy; Z88.8 Allergy status to other drugs, medicaments and biological substances
CPT/HCPCS: 71045; 99283; Q0092

== ENCOUNTER 2022-07-25 18:05 | Emergency (ER) | payer OTHER ==
[~2022-07-25] VITALS: Ht 172.7 cm; Wt 77.1 kg
[~2022-07-25 18:05] MED LIST changes: +HYDR-4004 PO; -ORE25 PO; -VANC1.5P3 IV; +[UNRECOGNIZED DRUG - CODE] IV
[2022-07-25 18:14] VITALS: BP 145/78
--- NOTE | 2022-07-25 18:21 | NUR ---
PT ASSISTED TO BED 4
--- NOTE | 2022-07-25 18:23 | NUR ---
bs 138
--- NOTE | 2022-07-25 18:25 | NUR ---
bibs for dizziness and blurry vision since 1630 today. hx dm. no facial droop. no slurred. - arm drift. aao x4. resp even and nonlabored. denies chest pain,n,v,d, fever, chills, sob, cough. on cv monitor
--- NOTE | 2022-07-25 19:00 | NUR ---
blood sent to lab
--- NOTE | 2022-07-25 19:24 | NUR ---
report given to sandra connor
[2022-07-25 19:35] LABS: ALBUMIN 3.9 g/dL (3.4-5.0); ANION GAP 11.7 (8-16); CARBON DIOXIDE 28.9 mmol/L (21-32); CREATININE 1.2 mg/dL (0.6-1.3); POTASSIUM 3.6 mmol/L (3.5-5.1); TOTAL BILIRUBIN 0.5 mg/dL (0.0-1.0)
--- NOTE | 2022-07-25 19:41 | NUR ---
67 Y/O M presents with dizzines and blurry vision since 1630. pt denies any pain, NVD, and headache. pt is A&Ox4, skin intact, respirations even and labored. pt stated gait is slightly unsteady due to dizziness. PMH- diabetic type II
[2022-07-25 19:42] LABS: HEMATOCRIT 41.3 % (36-52); HEMOGLOBIN 13.7 g/dL (12.0-18.0); MEAN CORPUSCULAR HEMOGLOBIN 30 pg (27-31); MEAN CORPUSCULAR HGB CONC 33 g/dL (33-37); RED BLOOD CELL COUNT(AUTO) 4.54 MIL/uL (4.20-6.10); WHITE BLOOD COUNT (AUTO) 9.2 K/uL (4.8-10.8)
[2022-07-25 19:43] LABS: BASOPHILS % (AUTO) 0.3 % (0.0-2.0); EOSINOPHILS # (AUTO) 0.1 K/uL (0-0.4); LYMPHOCYTES % (AUTO) 21.3 % (20.5-51.1); MONOCYTES # (AUTO) 0.9 K/uL (0.8-1.0); MONOCYTES % (AUTO) 10.3 % (1.7-9.3); NEUTROPHILS # (AUTO) 6.2 K/uL (1.8-7.7); NEUTROPHILS % (AUTO) 67.1 % (42.2-75.2); PLATELET COUNT (AUTO) 129 K/uL (140-450); RED CELL DISTRIBUTION WIDTH 12.8 % (11.6-13.7)
[2022-07-25 20:06] VITALS: BP 126/75
--- NOTE | 2022-07-25 20:16 | NUR ---
Dr. Hawk at bedside
--- NOTE | 2022-07-25 22:30 | NUR ---
pt's stated she will bring pt's automatic wheelchair to the vehicle to assist pt into wheelchair along with their neighbor at the residence. pt transferred well into vehicle.
--- NOTE | 2022-07-25 22:30 | NUR ---
Patient discharged with v/s stable. Written and verbal after care instructions given and explained. Patient verbalized understanding. Wheel Chair Assisted with to home. All questions addressed prior to discharge. Advised to follow up with PMD.
--- NOTE | 2022-07-25 22:46 | NUR ---
The patient's care was reviewed and supervised by Elvia Springer RN.
== END 2022-07-25 22:43 | disposition home or self-care (01) ==
LOC: MED 18:05
DX: R55 Syncope and collapse (principal); I10 Essential (primary) hypertension; E11.9 Type 2 diabetes mellitus without complications; Z79.4 Long term (current) use of insulin; Z79.899 Other long term (current) drug therapy; Z88.8 Allergy status to other drugs, medicaments and biological substances
CPT/HCPCS: 36415; 80053; 83880; 84484; 85025; 99284

== ENCOUNTER 2023-04-07 10:03 | Emergency (ER) | payer OTHER ==
[~2023-04-07] VITALS: Ht 175.3 cm; Wt 77.1 kg
[2023-04-07 10:27] VITALS: BP 99/57; PULSE 89; RESP 18; TEMP 98.7; O2SAT 99
[2023-04-07] MEDS ORDERED: BACITRACIN OINT 500 UNITS/GM PKT TP ONE (10:56)
[2023-04-07] MEDS ORDERED: cephALEXin 500 MG CAP PO ONE (11:00)
[2023-04-07] MEDS ORDERED: CEPH-588 PO (11:01)
[2023-04-07 11:07] VITALS: BP 99/57; PULSE 89; RESP 18; TEMP 98.7; O2SAT 99
== END 2023-04-07 11:07 | disposition home or self-care (01) ==
LOC: MED 10:03
DX: L98.498 Non-pressure chronic ulcer of skin of other sites with other specified severity (principal); E11.40 Type 2 diabetes mellitus with diabetic neuropathy, unspecified; I10 Essential (primary) hypertension; Z89.612 Acquired absence of left leg above knee; Z89.611 Acquired absence of right leg above knee; Z79.84 Long term (current) use of oral hypoglycemic drugs; Z79.899 Other long term (current) drug therapy; Z88.8 Allergy status to other drugs, medicaments and biological substances
CPT/HCPCS: 99283

== ENCOUNTER 2023-09-02 09:24 | Emergency (ER) | payer OTHER ==
[~2023-09-02] VITALS: Ht 172.7 cm; Wt 74.8 kg
[~2023-09-02 09:24] MED LIST changes: +CEPH-588 PO
[2023-09-02 09:41] VITALS: BP 117/54; PULSE 93; RESP 18; TEMP 98.5; O2SAT 99
[2023-09-02 11:00] VITALS: BP 120/78; PULSE 82; RESP 16; TEMP 98; O2SAT 100
== END 2023-09-02 11:00 | disposition home or self-care (01) ==
LOC: MED 09:24
DX: S80.822A Blister (nonthermal), left lower leg, initial encounter (principal); L08.89 Other specified local infections of the skin and subcutaneous tissue; E11.9 Type 2 diabetes mellitus without complications; I10 Essential (primary) hypertension; Z79.899 Other long term (current) drug therapy; Z88.8 Allergy status to other drugs, medicaments and biological substances; X58.XXXA Exposure to other specified factors, initial encounter; Y92.89 Other specified places as the place of occurrence of the external cause; Y93.89 Activity, other specified; Y99.8 Other external cause status
CPT/HCPCS: 10140; 99284